=== PATIENT | male | born 1960 | race Caucasian/White ===

== ENCOUNTER 2020-06-20 16:23 | Outpatient (CLI) | payer OTHER, SELFPAY ==
--- NOTE | ~2020-06-20 | XR_ITS ---
XR lumbar spine 2-3V 06/20/2020 16:46 Indication: Low back pain Procedure: 3 views lumbar spine Comparison: No prior studies for comparison. Findings: There is disc narrowing at L3-4, L4-5 and L5-S1. There are facet degenerative changes at L5 -S1. No acute fracture or traumatic malalignment. No evidence for spondylolisthesis. Mild levocurvatu re of the lumbar spine. Sacral foramen are symmetric. Impression: 1: Mild-moderate lumbar spondylosis. Reviewed, dictated and finalized at location A. MA PROCESSOR Impression: 1: Mild-moderate lumbar spondylosis.
== END 2020-06-20 16:24 | disposition home or self-care (01) ==
PROVIDERS: PCP Emergency Medicine; Visit Provider Emergency Medicine
DX: M54.9 Dorsalgia, unspecified (principal); M54.30 Sciatica, unspecified side; M47.896 Other spondylosis, lumbar region
CPT/HCPCS: 72100

== ENCOUNTER 2020-07-30 16:30 | Outpatient (RCR) | payer OTHER, SELFPAY ==
--- NOTE | 2020-07-04 07:14 | PTOPEVAL ---
PHYSICAL THERAPY EVALUATION Thank you for referring Manjeet Toth to [facility].? Manjeet was evaluated for the dx of LE radiculopathy after COVID. The patient is scheduled to be seen for therapy? 1 x/week for 4 weeks (frequency per pt request). Please review, sign, date and return this plan of care KELBY. I agree with and certify that the following plan of care is medically necessary. Referring Physician Date Referring Provider: Sukhdev Crenshaw MD *PT Outpatient Evaluation Start: 07/02/20 16:22 Freq: Status: Active Protocol: Document 07/02/20 16:22 MLV (Rec: 07/02/20 17:50 MLV [id number]) Assessment Status Evaluation Evaluation Information Problem Diagnosis neel. glut pain with radiculopathy Onset 2019 Cause developed after having COVID Additional Evaluation Detail Patient was quarantined in Jan for COVID and began having sciatic symptoms then. Patient reports LE weaknesses ( especially at feet and right glut) since COVID along with pain. The patient also has neel. heel numbnessPatient had back pain with sciatic in 2014 and had back injections-didn' t help much. The patient worked out at gym for 3 months the got COVID and hasn't done as much since recovered. 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 Patient rides motorcycles for hobby. Diagnostic Tests X-Rays For This Problem Yes: DDD L4-S1 Pain Assessment Timing of Pain Assessment Timing of Pain Assessment Assessment Pain Scale Pain Scale Used Numeric (1 - 10) Self Report Pain Assessment Right Buttock(s) Reported Pain Level 0 Pain Description Soreness Pain Frequency Acute Pain Aggravating Factors Walking Pain Behaviors Limping Pain Score Pain Score 0: Self Report Interventions Used Interventions Used By Clinicians Education Pain Relief Interventions Used By None,Inactivity/Rest Patient Cervical and Lumbar ROM Lumbar ROM Reason Not Measured WNL/Left,WNL/Right Lower Extremity Range of Motion General Lower Extremity Range of Motion Reason Not Measured WNL/Left,WNL/Right Gross Lower Extremity Range of Motion neel. hip IR 5-10 degrees Comments
--- NOTE | 2020-07-31 16:04 | PTOPEVAL ---
PHYSICAL THERAPY DISCHARGE SUMMARY Thank you for referring Manjeet Toth to [facility].? 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 The patient has peaked with skilled PT needs; some goals being met and others not met due to severity of deficits. DC PT. Please review, sign, date and return this plan of care. I agree with and certify that the following plan of care. Referring Physician Date Referring Provider: Sukhdev Crenshaw MD *PT Outpatient Discharge Start: 07/02/20 16:22 Freq: Status: Active Protocol: Document 07/30/20 16:27 MLV (Rec: 07/30/20 17:22 [facility] [id number]) Therapy Assessment Status Assessment Status Assessment Status Discharge Evaluation Information Problem Diagnosis neel. glut pain with radiculopathy Onset 2019 Cause developed after having COVID Additional Evaluation Detail Patient reports the tingling/ numbness feeling at his feet have not changed since the eval. The patient reports doing his exercises but his walking/stair climbing is not much easier. The patient wants to continue his exercises and see how much better he can get before he pursues other treatments. Subjective Information The patient plans to see MD Query Text:As Reported By Patient/ regarding the remaining hip Family pain at right side. Pain Assessment Timing of Pain Assessment Timing of Pain Assessment Assessment Pain Scale Pain Scale Used Numeric (1 - 10) Self Report Pain Assessment Right Buttock(s) Reported Pain Level 0 Pain Score Pain Score 0: Self Report Lower Extremity Range of Motion General Lower Extremity Range of Motion Reason Not Measured WNL/Left,WNL/Right Gross Lower Extremity Range of Motion neel. hip IR 15-20 degrees Comments motion (improved) Lower Extremity Muscle Strength Testing General Lower Extremity Strength Gross Lower Extremity Strength right ankle eversion 4/5, ankle PF 4-/5. Left ankle eversion 4+/5, PF 4/5. Gluteus right 3+/5, left 4-/5, gluteus medius left 3+/5, right 3/5 with pain right when resistance attempted. Patient remains unable to stand and lift to toes neel. or
== END 2020-09-11 09:05 | disposition home or self-care (01) ==
LOC: ANHPT 16:30
PROVIDERS: PCP Emergency Medicine; Referring Provider Emergency Medicine; Visit Provider Emergency Medicine
DX: M54.9 Dorsalgia, unspecified (principal); M54.10 Radiculopathy, site unspecified; M54.30 Sciatica, unspecified side
CPT/HCPCS: 97110; 97140; 97161

== ENCOUNTER 2020-09-04 06:45 | Outpatient (CLI) | payer OTHER, SELFPAY ==
--- NOTE | ~2020-09-04 | MR_ITS ---
EXAMINATION: MR lumbar spine wo con DATE: 09/04/2020 07:46 INDICATION: Lumbar radiculopathy. TECHNIQUE: Magnetic resonance imaging (MRI) of the lumbar spine was performed without intravenous con trast. Sequences included sagittal T2-weighted FSE, sagittal T2-weighted FS FSE, sagittal T1-weighted FSE, and axial T2-weighted FSE. COMPARISON: Lumbar spine radiographs 06/20/2020 FINDINGS: Bone alignment is normal. There is mild chronic anterior wedging of T12 and L1 vertebral paulina dies. There is moderately decreased disc height at L5-S1 with endplate remodeling. The distal spinal cord signal intensity is normal. The conus medullaris is at T12-L1. The following disc levels are spe cifically discussed: L1-L2: The disc is mildly bulging. There is mild bilateral facet joint osteoarthritis. There is mild left neural foraminal stenosis. There is mild central canal stenosis. L2-L3: The disc is bulging and has an annular fissure. There is mild bilateral facet joint osteoarthr itis. There is mild bilateral neural foraminal stenosis. There is mild central canal stenosis. L3-L4: The disc is bulging and has an annular fissure. There is mild bilateral facet joint osteoarthr itis. There is mild bilateral neural foraminal stenosis. There is mild central canal stenosis. L4-L5: The disc is bulging. There is severe bilateral facet joint osteoarthritis. There is mild bilat eral neural foraminal stenosis. There is mild central canal stenosis. L5-S1: The disc is bulging and has an annular fissure. There is mild right and moderate left facet gwyn int osteoarthritis. There is moderate bilateral neural foraminal stenosis. There is mild central rudy l stenosis. IMPRESSION: 1. Moderate lower lumbar spondylosis. Reviewed, dictated and finalized at location B.
== END 2020-09-04 06:46 | disposition home or self-care (01) ==
PROVIDERS: PCP Emergency Medicine; Visit Provider Emergency Medicine
DX: M54.30 Sciatica, unspecified side (principal); M47.26 Other spondylosis with radiculopathy, lumbar region
CPT/HCPCS: 72148

== ENCOUNTER 2020-11-20 16:30 | Outpatient (RCR) | payer OTHER, SELFPAY ==
--- NOTE | 2020-09-26 08:49 | PTOPEVAL ---
PHYSICAL THERAPY EVALUATION AND PLAN OF CARE Thank you for referring Manjeet Toth to [facility].? The patient is scheduled to be seen for therapy? 1x/week for 4 weeks. Please review, sign, date and return this plan of care KELBY. I agree with and certify that the following plan of care is medically necessary. Referring Physician Date Attending Provider: Sukhdev Crenshaw MD Evaluation Outpatient Past Medical History Musculoskeletal History Hx Back Pain Yes: injections Hx Degenerative Disk Disease Yes: 3 lumbar discs Diagnosis lumbar radiculopathy Onset chronic Subjective Information Manjeet is here today with back Query Text:As Reported By Patient/ pain and lumbar radiculopathy. Family Started in February 2020 when he was isolated he started to experience sciatic symptoms. He did physical therapy in June 2020 and states that went well and he felt like he was getting stronger and it had helped to reduce his limp. After the end of treatment the symptoms started to worsen and he has a limp again. He got an MRI that shows a bulging disc with annular fissure at L5-S1. States that his heels are numb and he cannot perform a heel raise. states his left toes curl when he walks and his right toes go up when he walks Self Report Pain Assessment Right Spine, Lumbar Reported Pain Level 5 Pain Description Tingling Pain Frequency Chronic,Continuous Lowest Pain Intensity 4 Greatest Pain Intensity 8 Pain Aggravating Factors Walking,Weight Bearing/ Standing Pain Score Pain Score 5: Self Report Interventions Used Interventions Used By Clinicians Exercise Cervical and Lumbar ROM Lumbar ROM Lumbar Flexion (0-90) 60 Query Text:Active in Degrees Lumbar Extension (0-40) 20 Query Text:Active in Degrees Lateral Rotation Right (0-45) 45 Query Text:Active in Degrees Lateral Rotation Left (0-45) 45 Query Text:Active in Degrees Lumbar Comments increased pressure on right glutes with right rotation Lower Extremity Range of Motion General Lower Extremity Range of Motion Reason Not Measured WFL/Left,WFL/Right Lower Extremity Musc
--- NOTE | 2020-10-23 16:58 | PTOPEVAL ---
PHYSICAL THERAPY PROGRESS REPORT Thank you for referring Manjeet Toth to [facility] [place] The patient is scheduled to be seen for therapy? for a follow-up appt in one month. Please review, sign, date and return this plan of care KELBY. I agree with and certify that the following plan of care is medically necessary. Referring Physician Date Attending Provider: Sukhdev Crenshaw MD [facility] Past Medical History Musculoskeletal History Hx Back Pain Yes: injections Hx Degenerative Disk Disease Yes: 3 lumbar discs Evaluation Information Problem Diagnosis lumbar radiculopathy Onset chronic Subjective Information States that he feels about 20% Query Text:As Reported By Patient/ better with therapy and with Self Report Pain Assessment Right Spine, Lumbar Reported Pain Level 4 Pain Description Tingling Pain Frequency Chronic,Continuous Pain Aggravating Factors Walking,Weight Bearing/ Standing Pain Score Pain Score 4: Self Report Interventions Used Interventions Used By Clinicians Exercise Cervical and Lumbar ROM Lumbar ROM Lumbar Flexion (0-90) 60 Query Text:Active in Degrees Lumbar Extension (0-40) 20 Query Text:Active in Degrees Lateral Rotation Right (0-45) 45 Query Text:Active in Degrees Lateral Rotation Left (0-45) 45 Query Text:Active in Degrees Lumbar Comments . Lower Extremity Range of Motion General Lower Extremity Range of Motion Reason Not Measured WFL/Left,WFL/Right Lower Extremity Muscle Strength Testing Hip Strength Right Hip Flexion Strength 5 Normal Hip Extension Strength 3 Fair Hip Abduction Strength 4 Good Left Hip Flexion Strength 5 Normal Hip Extension Strength 5 Normal Hip Abduction Strength 5 Normal Knee Strength Bilateral Knee Flexion Strength 5 Normal Knee Extension Strength 5 Normal Ankle Strength Right Ankle Dorsiflexion Strength 5 Normal Ankle Plantarflexion Strength 3+ Fair + Ankle Eversion Strength 4+ Good + Left Ankle Dorsiflexion Strength 5 Normal Ankle Plantarflexion Strength 3+ Fair + Muscle Length Testing Muscle Length Testing Naresh Test Shortened Muscles Short (R) Iliopsoas,Short (L) Iliopsoas,Short (L) Rectus Femoris Right Straight Leg Raise Muscle Length ( 70 degrees) Left Straight Leg Raise Muscle Length ( 75 degrees) Left Hamstring Length -40 Query Text:(90 - 90 Position) Right Hamstring Length -40 Query Text:(90 - 90 Position) Palpation Assessment Palpation Palpation
--- NOTE | 2020-11-20 17:06 | PTOPEVAL ---
PHYSICAL THERAPY DISCHARGE NOTE Thank you for referring Manjeet Toth to [facility].? Please review, sign, date and return this plan of care KELBY. I agree with and certify that the following plan of care is medically necessary. Referring Physician Date Attending Provider: Sukhdev Crenshaw MD Discharge Outpatient Past Medical History Musculoskeletal History Hx Back Pain Yes: injections Hx Degenerative Disk Disease Yes: 3 lumbar discs Diagnosis lumbar radiculopathy Onset chronic Subjective Information Reports that he took the month Query Text:As Reported By Patient/ to do his exercises and he Family felt like he was doing better. he did get a 2nd injection that felt like the shot made him worse and eventually improved so now he is about the same as before the 2nd shot. States that his feet maybe feel like there is a little more feeling in his feet so they are hurting worse than being numb. Right Spine, Lumbar Reported Pain Level 4 Pain Description Tingling Pain Frequency Chronic,Continuous Pain Aggravating Factors Walking,Weight Bearing/ Standing Pain Score Pain Score 4: Self Report Interventions Used Interventions Used By Clinicians Exercise Cervical and Lumbar ROM Lumbar ROM Lumbar Flexion (0-90) 60 Query Text:Active in Degrees Lumbar Extension (0-40) 20 Query Text:Active in Degrees Lateral Rotation Right (0-45) 45 Query Text:Active in Degrees Lateral Rotation Left (0-45) 45 Query Text:Active in Degrees Lumbar Comments . Lower Extremity Muscle Strength Testing Hip Strength Right Hip Flexion Strength 5 Normal Hip Extension Strength 3 Fair Hip Abduction Strength 4 Good Left Hip Flexion Strength 5 Normal Hip Extension Strength 5 Normal Hip Abduction Strength 5 Normal Palpation Assessment Palpation Palpation hypomobility noted to L3,4,5, posterior-anterior mobility does not increase or decrease symptoms -tightness noted to right QL and piriformis today - state she will be able to use a tennis ball to help release the ti
== END 2020-11-21 14:39 | disposition home or self-care (01) ==
LOC: ANHPT 16:30
PROVIDERS: PCP Emergency Medicine; Visit Provider Emergency Medicine
DX: M54.10 Radiculopathy, site unspecified (principal); M54.9 Dorsalgia, unspecified; M54.30 Sciatica, unspecified side
CPT/HCPCS: 97110; 97162

== ENCOUNTER 2021-01-21 16:22 | Outpatient (CLI) | payer OTHER, SELFPAY ==
--- NOTE | ~2021-01-21 | XR_ITS ---
XR lumbar spine min 4V DATE: 01/21/2021 16:53 INDICATION: Back pain for one year. No known injury. TECHNIQUE: AP, lateral, bilateral oblique views and coned lateral lumbosacral view COMPARISON: None FINDINGS: There is prominent degenerative disc disease and spurring at T11-12. There is mild degenerative disease at L1-2 through L4-5. There is moderate severe degenerative disc d isease at L5-S1. No spondylolysis or spondylolisthesis is evident. No fracture or bone destruction. The lumbar pedicles are intact. The sacroiliac joints are intact. IMPRESSION: Prominent degenerative disc disease at T11-12 and L5-S1; mild degenerative disc disease a t the remaining lumbar interspaces Reviewed, dictated and finalized at location B. IMPRESSION: Prominent degenerative disc disease at T11-12 and L5-S1; mild degen erative disc disease at the remaining lumbar interspaces
== END 2021-01-21 16:23 | disposition home or self-care (01) ==
LOC: ANHIMG 16:31
PROVIDERS: PCP Emergency Medicine
DX: M47.896 Other spondylosis, lumbar region (principal); M51.34 Other intervertebral disc degeneration, thoracic region; M51.37 Other intervertebral disc degeneration, lumbosacral region
CPT/HCPCS: 72110